=== PATIENT | male | born 1990 | race Two or more races ===

== ENCOUNTER 2022-06-07 15:47 | Emergency (ER) | payer OTHER ==
[~2022-06-07] VITALS: Ht 177.8 cm; Wt 120.0 kg
[2022-06-07] MEDS ORDERED: cloNIDine HCL 0.1 MG TAB PO ONE (16:00)
[2022-06-07 16:31] LABS: Basophils # (auto) 0.1 10 ^3/uL (0-0.2); Basophils % (auto) 0.8 % (0.0-2.0); Eosinophils # (auto) 0.1 10 ^3/uL (0-0.8); Eosinophils % (auto) 1.6 % (0.0-7.0); Hemoglobin 15.6 g/dL (13.5-17.5); Lymphocytes % (auto) 36.6 % (10.0-50.0); Mean Corpuscular Hemoglobin 28.7 pg (28.0-32.0); Mean Corpuscular Hgb Conc. 34.7 g/dL (32.0-36.0); Mean Corpuscular Volume 82.9 fL (80.0-100.0); Monocytes # (auto) 0.7 10 ^3/uL (0-1.3); Monocytes % (auto) 8.9 % (0.0-12.0); Neutrophils # (auto) 4.3 10 ^3/uL (1.6-8.6); Neutrophils % (auto) 52.1 % (37.0-80.0); Nucleated Red Blood Cells % 0.1 %; Red Blood Cells 5.43 10^6/uL (4.5-5.90); Red Cell Distribution Width 12.7 % (11.8-14.3); White Blood Cell 8.3 10^3/uL (4.4-10.8)
[2022-06-07 16:45] LABS: Albumin 4.3 g/dL (3.4-5.0); Potassium 3.6 mmol/L (3.5-5.1)
[2022-06-07 16:48] LABS: BUN/Creatinine Ratio 15.9; Bilirubin, Total 0.4 mg/dL (0.2-1.0)
[2022-06-07] MEDS ORDERED: MECL1TAB42 PO (16:58)
[2022-06-07 17:11] VITALS: BP 143/90
== END 2022-06-07 17:31 | disposition home or self-care (01) ==
LOC: ER 15:47
DX: I10 Essential (primary) hypertension (principal); R42 Dizziness and giddiness
CPT/HCPCS: 36415; 70450; 71045; 80053; 84484; 85025